=== PATIENT | female | born 1970 | race Caucasian/White ===

== ENCOUNTER → 2019-09-15 | Outpatient (CLI) | payer BC ==
--- NOTE | 2019-09-16 10:42 | USB ---
Reason for exam: clinical finding. Indicated problem(s): lump or thickening and pain in both breasts. Physical Findings: Nurse Summary: 3cm tender, red, warm to touch lump right breast 9 o'clock, 3cm movable cystic lump left breast upper outer quadrant, 1.5cm 12 o'clock cluster (nurse mj). US Breast BILAT Technologist: Zakia Bedoya Right complete breast ultrasound includes all four quadrants, the retroareolar region and axilla. Finding demonstrates a 4.4 x 2.9 x 1.6cm oval, cystic lesion at 9 o'clock, a 1.8 x 1.6 x 1.8cm cystic lesion with echoes at 10 o'clock for which an aspiration is recommended, a 1.0 x 1.0 x 0.5cm mixed lesion at 11 o'clock and duct ectasia at the nipple. Left complete breast ultrasound includes all four quadrants, the retroareolar region and axilla. Finding demonstrates a 4.8 x 2.9 x 1.6cm cystic cluster at 1 o'clock, ductal ectasia at the nipple and a 1.2 x 0.9 x 0.3cm lesion at 11 o'clock. These results were verbally communicated with the patient and result sheet given to the patient on 09/16/19. ASSESSMENT: Suspicious, BI-RAD 4 RECOMMENDATION: Surgical consultation and aspiration of the right breast. Called Dr. Lamb's office with mammographic findings and has scheduled an appointment for the patient with Dr. Ross. Biopsy scheduled for 10/02/19 at 1:00. PRELIMINARY REPORT CALLED AND FAXED TO DR. ROSS ON 09/16/19.
--- NOTE | 2019-09-16 10:44 | MM ---
Reason for exam: clinical finding. Indicated problem(s): lump or thickening and pain in both breasts. MG 3D Diag Mammo W/Cad MICHAEL Bilateral CC and MLO view(s) were taken. The breast tissue is heterogeneously dense. This may lower the sensitivity of mammography. Finding: There are typically benign round calcifications consistent with cysts and milk of calcium. These results were verbally communicated with the patient and result sheet given to the patient on 09/15/19. ASSESSMENT: Benign, BI-RAD 2 RECOMMENDATION: Routine screening mammogram of both breasts in [address] Lamb's office with mammographic findings and has scheduled an appointment for the patient with Dr. Ross. Biopsy scheduled for 10/02/19 at 1:00. PRELIMINARY REPORT CALLED AND FAXED TO DR. ROSS ON 09/16/19.
== END | disposition home or self-care (01) ==
LOC: RADUSWWP 13:54
PROVIDERS: ATTEND Family Medicine
DX: N63.10 Unspecified lump in the right breast, unspecified quadrant (principal); N63.20 Unspecified lump in the left breast, unspecified quadrant
CPT/HCPCS: 77062; 77066

== ENCOUNTER → 2019-10-05 | Day surgery (SDC) | payer BC ==
[2019-10-05 12:34] VITALS: RESP 16
[2019-10-05 14:12] VITALS: BP 122/65; PULSE 75; TEMP 98.1
--- NOTE | 2019-10-05 15:17 | USB ---
Ultrasound-guided aspiration right breast 10 o'clock lesion HISTORY: aspiration right breast 10 o'clock lesion The lesion in question within the right 10:00 breast was targeted sonographically by the undersigned. Procedure was performed by the undersigned. Informed consent was obtained and all of the patients qu estions were answered. The standard sterile technique was utilized and appropriate local anesthesia was obtained with 1% lidocaine. An 18-gauge needle was introduced into the lesion and 0.4 cc of aspir ate was obtained. Microclip marker was deployed. Aspirate was sent to cytology for further characteri zation. Post procedural mammogram demonstrates appropriate deployment of radiopaque clip marker. The patient tolerated the procedure well and left the department in stable condition. IMPRESSION: Successful cyst aspiration.
== END ==
LOC: RADUSWWP 12:01
PROVIDERS: ATTEND Student in an Organized Health Care Education/Training Program
DX: N60.01 Solitary cyst of right breast (principal); N60.42 Mammary duct ectasia of left breast; Z88.2 Allergy status to sulfonamides; Z80.3 Family history of malignant neoplasm of breast
CPT/HCPCS: 88305; 88173; 77065; 76942; 19000; A4648; J2001

== ENCOUNTER → 2020-05-03 | Outpatient (CLI) | payer BC ==
--- NOTE | 2020-05-03 11:17 | MM ---
Reason for exam: additional evaluation requested from prior study. Last mammogram was performed 7 months ago. History: Family history of breast cancer in maternal grandmother at age 70. Benign US breast aspiration single RT of the right breast, October 05, 2019. Physical Findings: Nurse Summary: 3cm nodule in the right breast at 9 o'clock and a 3cm nodule in the left breast at 2 o'clock (nurse mj). MG Diagnostic Mammo w CAD MICHAEL Bilateral CC and MLO view(s) were taken. Prior study comparison: October 05, 2019, right breast MG diagnostic mammo RT wo CAD. September 15, 2019, bilateral MG 3d diag mammo w/cad MICHAEL. The breast tissue is heterogeneously dense. This may lower the sensitivity of mammography. Finding: There are grouped/clustered, fine calcifications in the left breast consistent with dependent part of cyst. Previous mammotome biopsy in the right breast. No significant changes in finding since October 05, 2019 and September 15, 2019. These results were verbally communicated with the patient and result sheet given to the patient on 05/03/20. ASSESSMENT: Benign, BI-RAD 2 RECOMMENDATION: Follow-up diagnostic mammogram of both breasts in 5 months. Back on schedule. Ultrasound of the left breast in 5 months.
== END | disposition home or self-care (01) ==
LOC: RADMAMWWP 09:41
PROVIDERS: ATTEND Family Medicine
DX: N63.15 Unspecified lump in the right breast, overlapping quadrants (principal); N63.25 Unspecified lump in the left breast, overlapping quadrants
CPT/HCPCS: 77066

== ENCOUNTER → 2020-05-11 | Outpatient (CLI) | payer BC ==
[2020-05-11 14:12] VITALS: BP 109/59; PULSE 62; RESP 18; TEMP 98.1
--- NOTE | 2020-05-11 15:29 | P.GSHP ---
History of Present Illness H&P Date: 05/11/20 Chief Complaint: Bilateral breast lumps, abnormal mammogram Sofiya is a 49-year-old female who presents with a complaint of bilateral breast nodules that she has noted approximately a year. She did have a right breast aspiration in the past 8-0 this revealed filmy histiocytes, benign duct epithelial cells, and proteinaceous material. She most only had a bilateral mammogram and 05/03/20. This revealed "clustered fine calcifications in the left breast consistent with dependent part of the cyst. The x-rays were reviewed with Dr. Salmeron and it is felt that there fibrocystic changes and follow-up diagnostic mammogram of both breasts in 5 months is recommended as well as ultrasound of the left breast in 5 months. She complains of intermittent bilateral breast discomfort. She is not complaining of any nipple discharge or skin changes. She is not complaining of any trauma or infection in her breast. Caffeine: 1 cup/day Nicotine: One pack per day/2 years ila-bromine: daily Family History: maternal grandmother: bilateral breast cancer mother: skin cancer (basal cell), liver cancer had a transplant, was an alcoholic brother: testicular cancer Hormonal History: menarche: 12 , breast fed: yes, first born at 15 Novasure ablation, 22 years ago minimal bleeding, just cramping, done for bleeding BCP: 7 years Surgical History: fracture left leg Medical History: none Social History: smoke: 1/PPD alcohol: none drugs: none - Constitutional Constitutional: Denies chills, Denies fever - EENT Eyes: denies blurred vision, denies pain Ears: deny: decreased hearing, tinnitus Ears, nose, mouth and throat: Denies headache, Denies sore throat - Breasts Breasts: bilateral: as per HPI - Cardiovascular Cardiovascular: Denies chest pain, Denies shortness of breath - Respiratory Comment: smoker - Gastrointestinal Gastrointestinal: Denies abdominal pain, Denies diarrhea, Denies nausea, Denies vomiting - Genitourinary (Female) Genitourinary: Denies dysuria, Denies hematuria - Menstruation Menstruation: Reports as per HPI - Musculoskeletal Musculoskeletal: Denies myalgias - Integumentary Integumentary: Denies pruritus, Denies rash - Neurological Neurological: Denies numbness, Denies weakness - Psychiatric Psychiatric: Reports anxiety - Endocrine Endocrine: Denies fatigue, Denies weight change - Hematologic/Lymphatic Comment: none - Allergic/Immunologic Allergic/Immunologic: Reports as per HPI Past Medical History Past Medical History: No Reported History History of Any Multi-Drug Resistant Organisms: None Reported Past Surgical History: Orthopedic Surgery Past Anesthesia/Blood Transfusion Reactions: No Reported Reaction Past Psychological History: Anxiety Smoking Status: Current every day smoker Past Alcohol Use History: Rare Past Drug Use History: None Reported Medications and Allergies Home Medications Medication Instructions Recorded Confirmed Type traZODone HCL 75 mg PO HS 09/21/19 05/11/20 History Allergies Allergy/AdvReac Type Severity Reaction Status Date / Time Sulfa (Sulfonamide Allergy Swelling Verified 05/11/20 14:08 Antibiotics) Surgical - Exam Vital Signs Temp Pulse Resp BP Pulse Ox 98.1 F 62 18 109/59 99 05/11/20 14:10 05/11/20 14:10 05/11/20 14:10 05/11/20 14:10 05/11/20 14:10 BMI 24.7 - General well developed, well nourished, no distress - Eyes normal ocular movement - ENT normal pinna, normal nares - Neck no masses, trachea midline - Respiratory normal expansion, normal respiratory effort, clear to auscultation - Cardiovascular Rhythm: regular Heart Sounds: normal: S1, S2 - Abdomen Abdomen: soft - Integumentary normal turgor - Neurologic no disoriented, no combative - Musculoskeletal normal gait, normal posture - Psychiatric oriented to time, oriented to person, oriented to place, speech is normal, memory intact Breast exam: BRA: 34D inspection: Bilateral grade 2/3 ptosis Palpation: Right breast: Marked fibrocystic changes, probable cyst in the upper outer quadrant area very tender to palpation Right axilla: No adenopathy of concern Left breast: Fibrocystic changes bilateral probable cyst probable upper outer quadrant region otherwise no dominant masses or nodules of concern Left axilla: No adenopathy of concern Results Mammogram and ultrasound reviewed with Dr. Copeland Assessment and Plan Assessment: Impression: 1. Bilateral nodular breasts consistent with fibrocystic breast changes 2. Bilateral mammographic changes consistent with fibrocystic breast changes, microcalcifications in the left breast concrete layer in the cyst 3. Intermittent breast pain 4. Nicotine dependence Plan: 1. Cyst aspiration via ultrasound guidance secondary breast pain 2. Repeat bilateral mammogram in 5 months as well as ultrasound of the left breast in 5 months 3. Patient encouraged to stop nicotine and decreased caffeine intake Risks and benefits of cyst aspiration were discussed with the patient. Additionally she was given a book on breast pain. She was encouraged to stop smoking and decrease her caffeine intake. At this time there is nothing which would warrant interventional biopsy. She will be seen again following aspiration of a breast cyst. I showed her the mammograms and the cyst noted on the mammograms. Cc: Dr. Raya Cruz Encounter 45 minutes, time spent in reviewing records, physical examination, and counseling.
== END ==
LOC: WWCWWP 13:59
PROVIDERS: ATTEND Surgery
DX: N63.20 Unspecified lump in the left breast, unspecified quadrant (principal); N63.10 Unspecified lump in the right breast, unspecified quadrant; N60.12 Diffuse cystic mastopathy of left breast; N60.11 Diffuse cystic mastopathy of right breast; F17.200 Nicotine dependence, unspecified, uncomplicated; F41.9 Anxiety disorder, unspecified; Z79.899 Other long term (current) drug therapy

== ENCOUNTER → 2020-06-15 | Day surgery (SDC) | payer BC ==
[2020-06-15 10:09] VITALS: RESP 16
[2020-06-15 11:00] VITALS: BP 127/72; PULSE 71; TEMP 98.2
--- NOTE | 2020-06-15 11:54 | USB ---
EXAMINATION TYPE: US breast aspiration single RT, US breast aspiration single LT DATE OF EXAM: 06/15/2020 COMPARISON: NONE CLINICAL HISTORY: R92.8 Abnormal mammogram. Informed consent was obtained and all of the patients questions were answered. The standard sterile technique was utilized and appropriate local anesthesia was obtained with 1% lidocaine. Right breast: Cyst was localized at the 9:00 position in the 18-gauge needle was introduced into the cyst and approximately 10 cc of greenish fluid was aspirated. Left breast: Bilobed cyst was localized at the left 2:00 position and was completely aspirated with approximately 14 cc of greenish fluid obtained. The patient tolerated the procedure well and left the department in stable condition. Cytology results are pending. IMPRESSION: Successful bilateral cyst aspiration. Pathology Results: Benign A. LEFT BREAST, 2:00, ASPIRATE: Clusters of bland apocrine lining cells and degenerated cellular material consistent with benign apocrine cyst. Crystalline material is focally identified. B. RIGHT BREAST, 9:00, ASPIRATE: Clusters of bland apocrine and ductal cells consistent with benign apocrine cyst/fibrocystic changes. Recommendation Follow up mammogram of both breasts in 6 months. JOESPH
== END ==
LOC: RADUSWWP 09:45
PROVIDERS: ATTEND Surgery
DX: N60.02 Solitary cyst of left breast (principal); N60.01 Solitary cyst of right breast
CPT/HCPCS: 88108; 88305; 76942; 19000; J2001

== ENCOUNTER → 2020-08-03 | Outpatient (CLI) | payer BC ==
[2020-08-03 16:46] VITALS: BP 119/78; PULSE 63; RESP 18; TEMP 97.9
--- NOTE | 2020-08-03 17:18 | P.PN ---
Subjective Progress Note Date: 08/03/20 Principal diagnosis: Fibrocystic breast changes Sofiya is a 49-year-old female who presents with a complaint of bilateral breast nodules that she has noted approximately a year. She did have a right breast aspiration in the past 8-1919 this revealed filmy histiocytes, benign duct epithelial cells, and proteinaceous material. She most only had a bilateral mammogram and 05/03/20. This revealed "clustered fine calcifications in the left breast consistent with dependent part of the cyst. The x-rays were reviewed with Dr. Salmeron and it is felt that there fibrocystic changes and follow-up diagnostic mammogram of both breasts in 5 months is recommended as well as ultrasound of the left breast in 5 months. She complains of intermittent bilateral breast discomfort. She is not complaining of any nipple discharge or skin changes. She is not complaining of any trauma or infection in her breast. He underwent ultrasound-guided [place] [id number]. Both were benign. The patient states that the lesion in the left breast has not returned however she is concerned that the lesion in the right breast has come back. Patient's breast discomfort has decreased markedly. Caffeine: 1 cup every other day Nicotine: One pack per day/2 years ila-bromine: decreased from prior Family History: maternal grandmother: bilateral breast cancer mother: skin cancer (basal cell), liver cancer had a transplant, was an alcoholic brother: testicular cancer Hormonal History: menarche: 12 , breast fed: yes, first born at 15 Novasure ablation, 22 years ago minimal bleeding, just cramping, done for bleeding BCP: 7 years Surgical History: fracture left leg Medical History: none Social History: smoke: 1/PPD alcohol: none drugs: none - Constitutional Constitutional: Denies chills, Denies fever - EENT Eyes: denies blurred vision, denies pain Ears: deny: decreased hearing, tinnitus Ears, nose, mouth and throat: Denies headache, Denies sore throat - Breasts Breasts: bilateral: as per HPI - Cardiovascular Cardiovascular: Denies chest pain, Denies shortness of breath - Respiratory Comment: smoker - Gastrointestinal Gastrointestinal: Denies abdominal pain, Denies diarrhea, Denies nausea, Denies vomiting - Genitourinary (Female) Genitourinary: Denies dysuria, Denies hematuria - Menstruation Menstruation: Reports as per HPI - Musculoskeletal Musculoskeletal: Denies myalgias - Integumentary Integumentary: Denies pruritus, Denies rash - Neurological Neurological: Denies numbness, Denies weakness - Psychiatric Psychiatric: Reports anxiety - Endocrine Endocrine: Denies fatigue, Denies weight change - Hematologic/Lymphatic Comment: none Objective - Vital Signs Vital signs: Vital Signs Temp 97.9 F 08/03/20 16:44 Pulse 63 08/03/20 16:44 Resp 18 08/03/20 16:44 BP 119/78 08/03/20 16:44 Pulse Ox 98 08/03/20 16:44 Intake & Output 08/02/20 08/03/20 08/03/20 18:59 06:59 18:59 Weight 63.049 kg - Constitutional General appearance: Present: average body habitus - EENT Eyes: Present: EOMI ENT: Present: hearing grossly normal - Neck Neck: Present: normal ROM - Respiratory Respiratory: bilateral: CTA - Cardiovascular Rhythm: regular Heart sounds: normal: S1, S2 - Integumentary Integumentary: Present: normal turgor - Musculoskeletal Musculoskeletal: Present: gait normal - Psychiatric Psychiatric: Present: A&O x's 3, appropriate affect, intact judgment & insight - Additional findings Additional findings: Breast examination: Block: 30 6D Right breast: Multiple positional exam fibrocystic changes, no discrete dominant mass or nodule of concern Right axilla: No adenopathy of concern Left breast: Multi-positional exam no dominant masses or nodules of concern and no definite recurrence of cyst Left axilla: No adenopathy of concern Assessment and Plan Assessment: Impression: 1. Fibrocystic breast changes 2. Patient continues to smoke and has decreased caffeine intake 3. No definite recurrence of cyst in the breast after aspiration on Plan: 1. Bilateral breast ultrasound in November 2020 with physician exam at that time 2. Continue to encourage patient to modify lifestyle i.e. decrease caffeine, decrease chocolate 3. bilateral mammogarm and ultrasound in November 4. follow up sooner if any questions CC: DR. Celina Lamb
== END ==
LOC: WWCWWP 16:40
PROVIDERS: ATTEND Surgery
DX: N60.11 Diffuse cystic mastopathy of right breast (principal); F17.210 Nicotine dependence, cigarettes, uncomplicated; Z88.2 Allergy status to sulfonamides

== ENCOUNTER → 2022-09-30 | Outpatient (CLI) | payer BC ==
--- NOTE | 2022-09-30 12:18 | CT ---
EXAMINATION TYPE: CT abdomen pelvis wo con CT DLP: 306.4 mGycm, Automated exposure control for dose reduction was used. DATE OF EXAM: 09/30/2022 11:42 AM COMPARISON: None. CLINICAL INDICATION:Female, 52 years old with history of R10.9 UNSPECIFIED ABDOMINAL PAIN; right flan k pain TECHNIQUE: Axial CT of the abdomen and pelvis. Sagittal and coronal reformats were created on a [employer] workstation. Contrast used: mL of , (none if empty) Oral contrast used: without Oral Contrast (none if empty) FINDINGS: LOWER CHEST: The lungs are clear. ABDOMEN LIVER: Unremarkable GALLBLADDER AND BILE DUCTS: Unremarkable. PANCREAS: Unremarkable. SPLEEN: Unremarkable. ADRENAL GLANDS: Unremarkable. KIDNEYS AND URETERS: No evidence of hydronephrosis or renal calculus. The ureters are unremarkable. PELVIS BLADDER: Unremarkable REPRODUCTIVE: Unremarkable. ABDOMEN & PELVIS STOMACH AND BOWEL: Scattered colonic diverticula. No evidence of bowel obstruction. The appendix appe ars normal. PERITONEUM/RETROPERITONEUM: No evidence of pneumoperitoneum or free fluid. VASCULATURE: Mild atherosclerotic calcifications are present throughout the abdominal aorta and its b ranches. No evidence of aortic aneurysm. MUSCULOSKELETAL: No acute osseous abnormalities left hip arthroplasty changes with hardware intact. G rade 1 anterolisthesis of L5 on S1. LYMPH NODES: No gross evidence for lymphadenopathy. SOFT TISSUE/ABDOMINAL WALL: Fat-containing umbilical hernia. IMPRESSION: 1. No evidence for acute abdominal process. 2. Colonic diverticulosis.
== END | disposition home or self-care (01) ==
LOC: RADCTMAIN 11:06
PROVIDERS: ATTEND Family Medicine
DX: K57.30 Diverticulosis of large intestine without perforation or abscess without bleeding (principal)
CPT/HCPCS: 74176

== ENCOUNTER → 2023-06-15 | Outpatient (CLI) | payer BC ==
[2023-06-15 10:36] LABS: INR 1.01 sec (0.93-1.11); Prothrombin Time 10.9 sec (9.9-11.9)
[2023-06-15 10:43] LABS: % Iron Saturation 17.72 (12.00-45.00); ALT 12 U/L (8-44); AST 20 U/L (13-35); Albumin 4.4 g/dL (3.8-4.9); Albumin/Globulin Ratio 1.52 Ratio (1.60-3.17); Alkaline Phosphatase 59 U/L (41-126); Blood Urea Nitrogen 18.2 mg/dL (9.0-27.0); Calcium 9.5 mg/dL (8.7-10.3); Carbon Dioxide 24.4 mmol/L (21.6-31.8); Chloride 102 mmol/L (96-109); Chol/HDL Ratio 3.15 Ratio; Ferritin 54.1 ng/mL (10.0-291.0); Globulin 2.9 g/dL (1.6-3.3); Glucose 98 mg/dL (70-110); Iron 67 UG/DL (50-170); LDL Cholesterol,Calculated 126.3 mg/dL (0.0-131.0); Potassium 4.2 mmol/L (3.5-5.5); Sodium 138 mmol/L (135-145); Total Bilirubin 0.4 mg/dL (0.3-1.2); Total Iron Binding Capacity 378 UG/DL (228-460); Total Protein 7.3 g/dL (6.2-8.2)
[2023-06-15 11:07] LABS: Protein, Total 7.1 g/dL (6.2-8.2)
[2023-06-15 11:19] LABS: Hepatitis B Surface Antigen Nonreactive (Nonreactive); Hepatitis C IgG Antibody Nonreactive (Nonreactive)
[2023-06-15 11:23] LABS: Basophils # (A) 0.06 X 10*3/uL (0.00-0.10); Basophils % (A) 0.8 %; Eosinophils # (A) 0.36 X 10*3/uL (0.04-0.35); Eosinophils % (A) 4.8 %; HGB 14.4 g/dL (12.0-15.0); Immature Platelet Fraction 5.2 % (1.1-6.1); Lymphocytes # (A) 1.54 X 10*3/uL (0.90-5.00); Lymphocytes % (A) 20.7 %; MCH 30.1 pg (27.0-32.0); MCHC 33.5 g/dL (32.0-37.0); MCV 89.8 FL (80.0-97.0); Mean Platelet Volume 9.7 FL (9.5-12.2); Monocytes # (A) 0.47 X 10*3/uL (0.20-1.00); Monocytes % (A) 6.3 %; NRBC Per 100 WBC 0 X 10*3/uL (0.00-0.01); Neutrophils # (A) 4.98 X 10*3/uL (1.80-7.70); Neutrophils % (A) 66.9 %; Platelet Count 221 X 10*3/uL (140-440); RBC 4.79 X 10*6/uL (4.10-5.20); RBC Morphology Normal (Normal); RDW 12.7 % (11.5-14.5); WBC 7.45 X 10*3/uL (4.50-10.00)
[2023-06-15 11:32] LABS: Ceruloplasmin 25.9 mg/dL (20.0-60.0)
[2023-06-15 11:46] LABS: Alpha Fetoprotein, Tumor Mkr <3.00 ng/mL (0.00-7.90)
[2023-06-15 12:54] LABS: HIV 2 AB Non-Reactive (Non-Reactive); HIV AB P24 Non-Reactive (Non-Reactive); HIV P24 AG Non-Reactive (Non-Reactive)
[2023-06-16 14:06] LABS: Smooth Muscle Antibody 7 UNITS (<20)
[2023-06-16 20:29] LABS: Albumin 4.17 g/dL (3.80-4.90); Gamma Globulin 1.14 g/dL (0.70-1.50)
== END | disposition home or self-care (01) ==
LOC: LABWHC1 07:50
PROVIDERS: ATTEND Family Medicine
DX: K74.60 Unspecified cirrhosis of liver (principal)
CPT/HCPCS: 36415; 80053; 80061; 82103; 82105; 82390; 82728; 83036; 83516; 83540; 83550; 84165; 84443; 85025; 85610; 86038; 86780; 86803; 87340; 87390; 87522

== ENCOUNTER → 2024-07-25 | Outpatient (CLI) | payer BC ==
--- NOTE | 2024-07-30 12:12 | CTL ---
EXAMINATION TYPE: CT Low Dose Lung DATE OF EXAM: 07/25/2024 9:48 AM COMPARISON: None. SCREENING VISIT: Initial CT DIAGNOSTIC QUALITY: Satisfactory CLINICAL INDICATION: Female, 54 years old with history of Z12.2, Z87.891 PERSONAL HISTORY OF NICOTINE DEPEND, Former smoker, quit 5 years ago, was 1 ppd x 20 years,, Lung cancer screening, History of to bacco use. TECHNIQUE: Low dose computed tomography scan was performed through the chest at 1 mm thick sections a nd reconstructed images in the coronal plane at 1 mm thick sections. Contrast used: mL of , (none if empty) Oral contrast used: (none if empty) CT DLP: 72 mGycm, Automated exposure control for dose reduction was used. CT CTDI: 1.9 mGy, Automated exposure control for dose reduction was used. FINDINGS: LUNG NODULES: None. LUNGS: COPD: Severity: None Fibrosis: Severity: None Lymph nodes: None Other findings: None RIGHT PLEURAL SPACE: Effusion: None Calcification: None Thickening: None Pneumothorax: None LEFT PLEURAL SPACE: Effusion: None Calcification: None Thickening: None Pneumothorax: None HEART: Other: Ascending thoracic aorta at the level the main pulmonary artery measures 2.8 cm. The main pul monary artery at the bifurcation measures 2.2 cm. Heart Size: Normal Coronary calcification: No significant coronary artery calcifications. Pericardial effusion: None OTHER FINDINGS: Upper abdomen: Normal Bony thorax: Normal Supraclavicular region: Normal IMPRESSION: No suspicious changes for primary or metastatic neoplasm. FOLLOW UP CT CHEST RECOMMENDATION: Low-dose CT chest one year CT LUNG RAD: Lung-Rad 1 Negative [facility] Ursula Ovalle, Workstation: [id number], 07/30/2024 12:10 PM
== END | disposition home or self-care (01) ==
LOC: RADCTMAIN 08:16
PROVIDERS: ATTEND Family Medicine
DX: Z12.2 Encounter for screening for malignant neoplasm of respiratory organs (principal); Z87.891 Personal history of nicotine dependence
CPT/HCPCS: 71271

== ENCOUNTER → 2024-09-08 | Outpatient (CLI) | payer BC ==
--- NOTE | 2024-09-08 10:56 | MM ---
Reason for Exam: Clinical finding. Last mammogram was performed 4 year(s) and 4 month(s) ago. Indicated Problems: Lump or thickening of the left side for 3 Month(s). Patient History: Menarche at age 11. First Full-Term at age 15. Postmenopausal. Patient has history of breast feeding. 06/15/2020, Benign Cyst Aspiration on the left side. 06/15/2020, Benign Cyst Aspiration on the right side. 10/05/2019, Benign Cyst Aspiration on the right side. Maternal grandmother had breast cancer, right, age 70. Maternal grandmother had breast cancer, left, age 70. Risk Values: Gemma 5 year model risk: 0.9%. NCI Lifetime model risk: 6.7%. Prior Study Comparison: 09/15/2019 Bilateral Diagnostic Ultrasound, [facility]. 09/15/2019 Bilateral Diagnostic Mammogram, [facility]. 10/05/2019 Right Diagnostic Mammogram, [facility]. 05/03/2020 Bilateral Diagnostic Mammogram, [facility]. Tissue Density: The breasts are heterogeneously dense, which may obscure small masses. Findings: Analyzed By CAD. Left breast oval cyst 4 cm from the nipple measuring up to 4.1 cm with overlying calcifications are stable. No new suspicious masses, calcifications or distortions. Overall Assessment: Incomplete: need additional imaging evaluation, BI-RAD 0 Management: Diagnostic Breast Ultrasound of the left breast. Results were given to the patient verbally at the time of exam. Patient should continue monthly self-breast exams. A clinical breast exam by your physician is recommended on an annual basis. This exam should not preclude additional follow-up of suspicious palpable abnormalities. Note on Gemma scores and lifetime risk: 1. A Gemma score greater than 3% is considered moderate risk. If this is the case, consider specialist referral to assess eligibility for a risk reducing agent. 2. If overall lifetime risk for the development of breast cancer is 20% or higher, the patient may qualify for future screening with alternating mammogram and breast MRI. [facility], , 09/08/2024 10:54 AM. Electronically signed and approved by: Demetrius Delgado DO
--- NOTE | 2024-09-08 11:02 | USB ---
Patient History: Menarche at age 11. First Full-Term at age 15. Postmenopausal. Patient has history of breast feeding. 06/15/2020, Benign Cyst Aspiration on the left side. 06/15/2020, Benign Cyst Aspiration on the right side. 10/05/2019, Benign Cyst Aspiration on the right side. Maternal grandmother had breast cancer, right, age 70. Maternal grandmother had breast cancer, left, age 70. Risk Values: Gemma 5 year model risk: 0.9%. NCI Lifetime model risk: 6.7%. Prior Study Comparison: 09/15/2019 Bilateral Diagnostic Ultrasound, [facility]. 09/15/2019 Bilateral Diagnostic Mammogram, [facility]. 10/05/2019 Right Diagnostic Mammogram, [facility]. 05/03/2020 Bilateral Diagnostic Mammogram, [facility]. Findings: The axilla of the left breast and the retroareolar of the left breast were scanned. Technique utilized:US breast limited LT Image; Ultrasound imaging of: Area of concern, retroareolar region and axilla. Simple appearing cyst measuring up to 3.8 x 1.4 cm at 3:00 3 cm from the nipple. No suspicious solid masses. Negative left axilla. Overall Assessment: Benign, BI-RAD 2 Management: Screening Mammogram of both breasts in 1 year. A clinical breast exam by your physician is recommended on an annual basis and results should be correlated with mammographic findings. This exam should not preclude additional follow-up of suspicious palpable abnormalities. Results were given to the patient verbally at the time of exam. [facility], , 09/08/2024 11:00 AM. Electronically signed and approved by: Demetrius Delgado DO
== END | disposition home or self-care (01) ==
LOC: RADMAMWWP 08:28
PROVIDERS: ATTEND Family Medicine
DX: R92.8 Other abnormal and inconclusive findings on diagnostic imaging of breast (principal); R92.333 Mammographic heterogeneous density, bilateral breasts; Z78.0 Asymptomatic menopausal state; Z80.3 Family history of malignant neoplasm of breast
CPT/HCPCS: 77062; 77066